=== PATIENT | female | born 1940 | race African-American/Black ===

== ENCOUNTER 2020-04-19 17:44 | Emergency (ER) | payer MEDICARE, OTHER ==
[~2020-04-19] VITALS: Ht 162.6 cm; Wt 69.0 kg
[2020-04-19] MEDS ORDERED: LIDOCAINE 1%/EPI 1:100,000 10 ML VIAL IJ ONE (18:37)
[2020-04-19] MEDS ORDERED: LIDOCAINE HCL 1% 20ML VIAL (Pyxis) INJ ONE (18:39)
[2020-04-19] MEDS ORDERED: LIDOCAINE HCL/PF 1% 10 MG/ML 5ML VIAL IJ ONE (18:45)
[2020-04-19] MEDS ORDERED: LORAZEPAM 1MG TABLET PO ONE (18:45)
[2020-04-19] MEDS ORDERED: TRANEXAMIC ACID 1,000 MG/10 ML TP ONE (19:15)
[2020-04-19 19:28] LABS: BASOPHILS % 0.7 % (0.0-2.0); EOSINOPHILS % 1.2 % (0.0-5.0); HEMATOCRIT. 32.8 % (36.0-48.0); LYMPHOCYTES % 38.3 % (20.0-50.0); MEAN CORPUSCULAR HEMOGLOBIN 34.7 pg (28.0-32.0); MEAN CORPUSCULAR VOLUME 103.6 fL (81.0-99.0); MEAN PLATELET VOLUME 8.1 fl (7.4-10.4); MONOCYTES % 8.1 % (2.0-8.0); NEUTROPHILS % 51.7 % (40.0-76.0); PLATELET 197 x1000/uL (130-400); RED BLOOD CELL COUNT 3.17 mill/uL (4.2-5.4); RED CELL DISTRIBUTION WIDTH 13.4 % (11.6-14.6)
[2020-04-19 19:36] LABS: CHLORIDE 107 mEq/L (98-107)
[2020-04-19 19:37] LABS: INR 2.4; PROTHROMBIN TIME 23.7 sec (9.6-11.0)
[2020-04-19 20:58] VITALS: BP 121/56
== END 2020-04-19 21:06 | disposition home or self-care (01) ==
LOC: ER 17:44
DX: T82.838A Hemorrhage due to vascular prosthetic devices, implants and grafts, initial encounter (principal); N18.6 End stage renal disease; E78.00 Pure hypercholesterolemia, unspecified; Z88.6 Allergy status to analgesic agent; Z88.5 Allergy status to narcotic agent
CPT/HCPCS: 12001; 36415; 80053; 85025; 85610; 93005; 99284; J3490

== ENCOUNTER 2023-01-12 07:48 | Emergency (ER) | payer MEDICARE, OTHER ==
[~2023-01-12] VITALS: Ht 160 cm; Wt 70.0 kg
[2023-01-12] MEDS ORDERED: IPRATROPIUM BROMIDE (0.02%) 0.5MG/2.5ML NEB HHN STA (07:58)
[2023-01-12] MEDS ORDERED: ALBUTEROL (0.083%) 2.5MG/3ML NEB HHN STA (07:58)
[2023-01-12 08:24] LABS: BASOPHILS % 0.8 % (0.0-2.0); EOSINOPHILS % 0.9 % (0.0-5.0); HEMATOCRIT. 35.2 % (36.0-48.0); HEMOGLOBIN. 11.3 g/dL (12.0-16.0); LYMPHOCYTES % 14.2 % (20.0-50.0); MEAN CORPUSCULAR HEMOGLOBIN 31.9 pg (28.0-32.0); MEAN CORPUSCULAR VOLUME 99.7 fL (81.0-99.0); MEAN PLATELET VOLUME 7.3 fl (7.4-10.4); MONOCYTES % 8.2 % (2.0-8.0); NEUTROPHILS % 75.9 % (40.0-76.0); PLATELET 334 x1000/uL (130-400); RED BLOOD CELL COUNT 3.53 mill/uL (4.2-5.4); RED CELL DISTRIBUTION WIDTH 17.7 % (11.6-14.6)
[2023-01-12 08:35] LABS: CHLORIDE 98 mEq/L (98-107)
[2023-01-12 08:46] LABS: ETHANOL BLOOD < 10 mg/dL (-10)
[2023-01-12 08:55] LABS: BG BASE EXCESS 3.2 mmol/L (-2.0-2.0); BG CARBOXYHEMOGLOBIN 2.3 % (0.5-1.5); BG HCO3 ACT 28.7 mmol/L (22.0-26.0); BG METHEMOGLOBIN 0.2 % (0.0-1.5); BG OXYHEMOGLOBIN 96.5 % (94.0-97.0); BG PH 7.395 (7.350-7.450); BG PO2 140.2 mmHg (75.0-100.0); BG SAMPLE SITE RIGHT BRACHIAL; BG TOTAL HEMOGLOBIN 11.8 g/dL (12.0-18.0); BG VENT MODE MASK - NRB
[2023-01-12] MEDS ORDERED: ALBU6.7H3 INH (13:10)
[2023-01-12 13:39] VITALS: BP 154/64
== END 2023-01-12 13:40 | disposition home or self-care (01) ==
LOC: ER 07:48
DX: J45.909 Unspecified asthma, uncomplicated (principal); E78.00 Pure hypercholesterolemia, unspecified; Z88.6 Allergy status to analgesic agent; Z88.5 Allergy status to narcotic agent; Z77.098 Contact with and (suspected) exposure to other hazardous, chiefly nonmedicinal, chemicals
CPT/HCPCS: 36415; 36600; 71045; 80053; 80320; 82375; 82805; 83605; 83880; 84484; 85025; 86850; 86900; 93005; 94644; 99285; G0480